=== PATIENT | female | born 1965 | race Caucasian/White ===

== ENCOUNTER 2019-06-17 06:23 | Day surgery (SDC) | payer OTHER ==
[~2019-06-17 06:23] MED LIST: Acetaminophen TAB* 325 MG PO ONE; Buffered Lidocaine 1% SYRIN* 1 ML/SYRINGE INTRADERM ONE; Famotidine IV* 10 MG/ML 2 ML (20 mg) IV ONE; Gabapentin CAP(*) 300 MG PO ONE; Lactated Ringers 1000 ML Bag* 1,000 ML IV SCH; Levalbuterol 0.63MG/3ML NEB* UNIT OF USE INH PRN
[2019-06-17] MEDS ORDERED: Gabapentin CAP(*) 300 MG ONE (06:42)
[2019-06-17] MEDS ORDERED: Acetaminophen TAB* 325 MG ONE (06:43)
[2019-06-17] MEDS ORDERED: Famotidine IV* 10 MG/ML 2 ML (20 mg) ONE (06:44)
[2019-06-17] MEDS ORDERED: ceFAZolin 2 GM in NS PREMIX(*) 2 GM/100 ML BAG IVPB ONE (06:44)
[2019-06-17] MEDS ORDERED: Lidocaine 1% INJ* 10 MG/ML 30 ML SDV ONE (07:18)
[2019-06-17] MEDS ORDERED: Bupivacaine 0.5%* 50 ML MDV VIAL ONE (07:19)
[2019-06-17] MEDS ORDERED: fentaNYL* 50 MCG/ML 2 ML VIAL (100 MCG VIAL) ONE (07:30)
[2019-06-17] MEDS ORDERED: Midazolam* 1 MG/ML 2 ML VIAL (2 MG) ONE (07:30)
[2019-06-17] MEDS ORDERED: Lidocaine 2% PF * 5 ML VIAL ONE (07:38)
[2019-06-17] MEDS ORDERED: Propofol* 10 MG/ML 20 ML BTL ONE (07:38)
[2019-06-17] MEDS ORDERED: Ketorolac INJ* 30 MG/ML 1 ML VIAL ONE (07:38)
[2019-06-17] MEDS ORDERED: diPHENhydraMINE IV* 50 MG/ML 1 ml VIAL (BENADRYL) ONE (07:46)
[2019-06-17] MEDS ORDERED: diPHENhydraMINE IV* 50 MG/ML 1 ml VIAL (BENADRYL) IV PRN (08:07)
[2019-06-17] MEDS ORDERED: DiMENhydriNATE IV* 50 MG/ML VIAL IV PUSH PRN (08:07)
[2019-06-17] MEDS ORDERED: Naloxone* 0.4 MG/ML 1 ML VIAL IV PRN (08:07)
[2019-06-17] MEDS ORDERED: Ondansetron INJ* 2 MG/ML VIAL IV PRN (08:07)
[2019-06-17] MEDS ORDERED: fentaNYL* 50 MCG/ML 2 ML VIAL (100 MCG VIAL) IV PRN (08:07)
[2019-06-17 10:11] VITALS: BP 103/77
--- NOTE | 2019-06-17 14:09 | OP ---
DATE OF OPERATION: 06/17/19 - [facility] DATE OF : 63 SURGEON: Mohinder Charles DPM SPLITTER OPERATOR: None. ANESTHESIA: MAC with local. PRE-OP DIAGNOSIS: Painful soft tissue mass, plantar right arch. POST-OP DIAGNOSIS: Painful soft tissue mass, plantar right arch. OPERATIVE PROCEDURE: Excision of painful soft tissue mass from right arch. PATHOLOGY: Excised soft tissue that is a suspected lipoma. INDICATIONS: The patient with a painful slow growing mass in the plantar aspect of right arch. MRI study findings with a well-circumscribed soft tissue mass. It appears most consistent with a lipoma. Given its size, its growth and symptoms, excisional biopsy is warranted. HEMOSTASIS: Pneumatic ankle tourniquet. ESTIMATED BLOOD LOSS: Less than 10 cc. DESCRIPTION OF PROCEDURE: The patient was brought to the operating room, placed on the operating room table in supine position. The anesthesia department administered IV sedation and peripheral nerve block was performed at the right foot with a 1:1 mixture of 1% lidocaine plain and 0.5% Marcaine plain. The right foot was prepped and draped in usual fashion. Right foot was exsanguinated with Esmarch bandage and ankle tourniquet was inflated to 200 mmHg over well-padded right ankle. Attention was directed to the plantar central aspect of the right arch where a visible and palpable soft tissue mass was noted. A curvilinear incision was made oriented more transversely and dissection was carried with curved Metzenbaum scissors. The mass was immediately identified and had yellowish appearance, similar if not the same as the surrounding fibroadipose tissue. However, this cyst had a definite demarcation that could be visually followed. Using sharp and blunt dissection, the soft tissue mass as well as a portion of surrounding normal-appearing tissue was excised and sent off the field as specimen. The area was visually inspected with no further evidence of any abnormal tissue or remaining portions of the cyst. The surgical site was flushed with copious amounts of normal sterile saline. Subcutaneous retention sutures were placed with 4-0 Vicryl and skin was closed with 3-0 and 4-0 nylon. The incision was dressed with Xeroform gauze and a well-padded sterile mildly compressive dressing was applied to the right foot with 4x4 gauze, Camilo and ABD pad and secured with Coban wrap. The pneumatic ankle tourniquet was deflated about the right ankle and prompt hyperemic response was noted to all 5 digits of the patient's right foot. Having appeared to have tolerated the procedure and the anesthesia well, the patient was transported via cart from the operating room to Recovery in satisfactory condition with capillary refill less than 3 seconds to all digits of the right foot. [id number]/CPS #: [id number] MTDD
== END 2019-06-17 09:34 | disposition home or self-care (01) ==
LOC: OREAST 06:23
PROVIDERS: ATTEND Podiatrist Foot Surgery
DX: D17.39 Benign lipomatous neoplasm of skin and subcutaneous tissue of other sites (principal); E11.9 Type 2 diabetes mellitus without complications; Z79.84 Long term (current) use of oral hypoglycemic drugs; G47.33 Obstructive sleep apnea (adult) (pediatric); I10 Essential (primary) hypertension; R01.1 Cardiac murmur, unspecified; M19.90 Unspecified osteoarthritis, unspecified site; E78.5 Hyperlipidemia, unspecified
CPT/HCPCS: 88304; A9270-GY; J0690; J1200; J1885; J2250; J2704; J3010; J3490

== ENCOUNTER 2019-07-23 13:22 | Emergency (ER) | payer OTHER ==
--- OUTSIDE RECORDS SUMMARY | 2019-07-23 13:27 | XMS REPORT | Summary of Care ---
:1965 Author Organization [facility] Address [address] [place] [address] Care Team Providers Name Role Phone Princess De Paz MD Primary Care Provider Reason for Visit Reason Comments Pre-Op Exam Lipoma surgery 06/17/2019. Encounter Details Date Type Department Care Team Description 06/09/2019 Office Visit Zuleyma Sahu Pre-op evaluation Practice [employer] (Primary Dx) [address] [place] [address] [place] [address] [phone] Allergies Active Allergy Reactions Severity Noted Date Comments Codeine Unknown Reaction 10/30/2007 Ct Dye Rash 02/22/2009 Sulfa Antibiotics Unknown Reaction 10/30/2007 Tape: Silk Or Adhesive Dermatologic Reaction 10/20/2008 documented as of this encounter (statuses as of 06/09/2019) Medications Medication Sig Dispensed Refills Start Date End Date Status ibuprofen (MOTRIN) 200 Take 200 mg by 0 Active MG Oral Tab mouth EVERY SIX HOURS NEEDED for Pain. nystatin-triamcinolone 1 g by Topical 60 g 3 07/22/2018 Active (MYCOLOG) 716696-1.1 route TWICE UNIT/GM-% Apply DAILY. externally CreamIndications: Type 2 diabetes mellitus without complication, without long-term current use of insulin (HCC) atorvastatin (LIPITOR) Take 1 Tab by 90 Tab 3 11/12/2018 Active 40 MG Oral Tab mouth DAILY. duloxetine (CYMBALTA) 60 TAKE 1 CAPSULE 90 Cap 1 01/11/2019 Active MG Oral CAPSULE ENTERIC BY MOUTH EVERY COATED DAY PARTICLESIndications: Fibromyalgia BISOPROLOL-HYDROCLOROTHI Take 1 Tab by 90 Tab 3 03/08/2019 Active AZIDE 10-6.25 MG Oral mouth DAILY. TabIndications: Essential hypertension Dulaglutide (TRULICITY) Inject 1.5 mg 3 mL 3 04/16/2019 Active 1.5 MG/0.5ML beneath the skin Subcutaneous Solution EVERY 7 DAYS. Pen-injector metFORMIN (GLUCOPHAGE Take 1 Tab by 90 Tab 3 05/18/2019 Active XR) 500 MG Oral TABLET mouth DAILY. SR 24 HRIndications: Type 2 diabetes mellitus without complication, without long-term current use of insulin (HCC) gabapentin (NEURONTIN) Take 1 Cap by 30 Cap 2 05/18/2019 Active 300 MG Oral mouth EVERY CapIndications: BEDTIME. Peripheral polyneuropathy Hospital, Clinic, or Other Ordered Dose Route Frequency Start Date End Date Status Facility Administered Medication Dulaglutide 0.75 MG/0.5ML 1 Dose SC NOW 03/17/2019 Active SOPNIndications: Type 2 diabetes mellitus without complication, without long-term current use of insulin (HCC) documented as of this encounter (statuses as of 06/09/2019) Active Problems Problem Noted Date Type 2 diabetes mellitus without complication, without long-term current 06/13 use of insulin BMI 36.0-36.9,adult 05/22/2012 Overview: This patient's BMI has been calculated and is above average, and BMI management plan is completed. General patient education discussion including: obesity-related excess mortality, weight loss link to reduction of risk factors for cardiac and other diseases MATT (obstructive sleep apnea) 12/29/2008 Overview: Not using mask- frequent pneumonia whiile on mask- stopped Studies done in [place] C[place] (carpal tunnel syndrome) 10/21/2008 Overview: Srugery on left -Dr Alvarez; Raynauds phenomenon 10/21/2008 Overview: Vasular -like complaint of the right arm- extensive sands without true diagnosis Irritable bowel syndrome 10/30/2007 Fibromyalgia 10/30/2007 Lung nodule Overview: f/u recommended in 04/13 for stability documented as of this encounter (statuses as of 06/09/2019) Resolved Problems Problem Noted Date Resolved Date Sprain of wrist, unspecified site 12/29/2008 03/11/2013 Tachycardia 03/11/2013 documented as of this encounter (statuses as of 06/09/2019) Immunizations Name Administration Dates Next Due H1N1 Injectable Adult 10/17/2009 Influenza (IM) Preservative Free 07/22/2018, 07/27/2014, 10/22/2013, 07/05/2009 Influenza Vaccine Whole 07/21/2008, 08/11/2007 PNEUMOCOCCAL POLYSACCHARIDE VACCINE 07/21/2008, 07/31/2001 TDAP Vaccine 06/27/2008 dT Vaccine 04/24/1994 documented as of this encounter Social History Tobacco Use Types Packs/Day Years Used Date Never Smoker Smokeless Tobacco: Never Used Alcohol Use Drinks/Week oz/Week Comments No 0 Standard drinks or equivalent 0.0 Sex Assigned at Date Recorded Not on file Job Start Date Occupation Industry Not on file Not on file Not on file Travel History Travel Start Travel End No recent travel history available. documented as of this encounter Last Filed Vital Signs Vital Sign Reading Time Taken Comments Blood Pressure 143/73 06/09/2019 9:24 AM EDT Pulse - - Temperature - - Respiratory Rate - - Oxygen Saturation - - Inhaled Oxygen Concentration - - Weight 93.2 kg (205 lb 6.4 oz) 06/09/2019 9:24 AM EDT Height 162.6 cm (5' 4") 06/09/2019 9:24 AM EDT Body Mass Index 35.26 06/09/2019 9:24 AM EDT documented in this encounter Patient Instructions Patient InstructionsZuleyma Rose FNP - 06/09/2019 9:20 AM EDTFollow up as needed documented in this encounter Progress Notes Zuleyma Rose FNP - 06/09/2019 9:20 AM EDT PATIENT: Maryana Jefferson : 1965 DATE OF SERVICE: 06/09/2019 Subjective SUBJECTIVE: Maryana Jefferson is a 53-y.o. female who presents to the office today for a preoperative consultation at the request of Dr Evans, who will perform an excision of soft tissue mass right foot arch with IV sedation on 06/17/19. Patient complains of : Pain right foot. Patient denies cardiac symptoms: chest pain, syncope. Past history of pulmonary embolism/deep vein thrombosis: no. There is a history of bleeding complications: required transfusion when had hysterectomy Past history of anesthetic problem: no. Exercise capacity: Can you walk 2 blocks on level ground, or carry 2 bags of groceries up 2 flights of stairs? Yes Current active problems are: Patient Active Problem List Diagnosis Date Noted Type 2 diabetes mellitus without complication, without long-term current use of insulin ([facility])06/13/2016 BMI 36.0-36.9,adult 05/22/2012 This patient's BMI has been calculated and is above average, and BMI management plan is completed. General patient education discussion including: obesity-related excess mortality, weight loss linkto reduction of risk factors for cardiac and other diseases MATT (obstructive sleep apnea) 12/29/2008 Not using mask- frequent pneumonia whiile on mask- stopped Studies done in [place] C[facility] (carpal tunnel syndrome) 10/21/2008 Srugery on left -Dr Alvarez; Raynauds phenomenon 10/21/2008 Vasular -like complaint of the right arm- extensive sands without true diagnosis Lung nodule f/u recommended in 04/13 for stability Irritable bowel syndrome 10/30/2007 Fibromyalgia 10/30/2007 Past Medical History: Diagnosis Date Fatty liver Fibromyalgia 10/30/2007 Infection with microorganisms resistant to penicillins Irritable bowel syndrome 10/30/2007 Lung nodule f/u recommended in 04/13 for stability MRSA carrier MATT (obstructive sleep apnea) Pilonidal cyst with abscess Postmenopausal Tachycardia Family History Adopted: Yes Family history unknown: Yes Current Outpatient Medications Medication Sig atorvastatin (LIPITOR) 40 MG Oral Tab Take 1 Tab by mouth DAILY. BISOPROLOL-HYDROCLOROTHIAZIDE 10-6.25 MG Oral Tab Take 1 Tab by mouth DAILY. Dulaglutide (TRULICITY) 1.5 MG/0.5ML Subcutaneous Solution Pen-injector Inject 1.5 mg beneaththe skin EVERY 7 DAYS. duloxetine (CYMBALTA) 60 MG Oral CAPSULE ENTERIC COATED PARTICLES TAKE 1 CAPSULE BY MOUTH EVERY DAY gabapentin (NEURONTIN) 300 MG Oral Cap Take 1 Cap by mouth EVERY BEDTIME. ibuprofen (MOTRIN) 200 MG Oral Tab Take 200 mg by mouth EVERY SIX HOURS NEEDED for Pain. metFORMIN (GLUCOPHAGE XR) 500 MG Oral TABLET SR 24 HR Take 1 Tab by mouth DAILY. nystatin-triamcinolone (MYCOLOG) 224433-5.1 UNIT/GM-% Apply externally Cream 1 g by Topical route TWICE DAILY. Current Facility-Administered Medications Medication Dulaglutide 0.75 MG/0.5ML SOPN Allergies Allergen Reactions Codeine Unknown Reaction Contrast Dye [Ct Dye] Rash Sulfa Antibiotics Unknown Reaction Tape: Silk Or Adhesive Dermatologic Reaction Social History Socioeconomic History Marital status: Spouse name: Not on file Number of children: Not on file Years of education: Not on file Highest education level: Not on file Occupational History Not on file Social Needs Financial resource strain: Not on file Food insecurity: Worry: Not on file Inability: Not on file Transportation needs: Medical: Not on file Non-medical: Not on file Tobacco Use Smoking status: Never Smoker Smokeless tobacco: Never Used Substance and Sexual Activity Alcohol use: No Alcohol/week: 0.0 standard drinks Drug use: No Sexual activity: Yes Partners: Male Lifestyle Physical activity: Days per week: Not on file Minutes per session: Not on file Stress: Not on file Relationships Social connections: Talks on phone: Not on file Gets together: Not on file Attends latter-day service: Not on file Active member of club or organization: Not on file Attends meetings of clubs or organizations: Not on file Relationship status: Not on file Intimate partner violence: Fear of current or ex partner: Not on file Emotionally abused: Not on file Physically abused: Not on file Forced sexual activity: Not on file Other Topics Concern Back Care Not Asked Bike Helmet Not Asked Blood Transfusions Not Asked Caffeine Concern Not Asked Exercise No Hobby Hazards Not Asked International Travel Not Asked Service Not Asked Occupational Exposure Not Asked Seat Belt Not Asked Self-Exams Not Asked Sleep Concern No Special Diet No Stress Concern Yes Comment: work-related Weight Concern No Social History Narrative Runs a daycare. Lives with . REVIEW OF SYSTEMS: All remaining review of systems was negative except for: Musculoskeletal: positive for myalgias. Objective OBJECTIVE: BP 143/73 | Ht 5' 4" (1.626 m) | Wt 205 lb 6.4 oz (93.2 kg) | BMI 35.26 kg/m GENERAL: alert, cooperative, no distress. SKIN: no rash or abnormalities. EYES: conjunctivae/corneas clear. Pupils equal, round, reactive to light. Equal ocular movements intact. MOUTH: moist mucous membranes, no lesions. LYMPH NODES: cervical, supraclavicular, and axillary nodes normal.. LUNGS: clear to auscultation bilaterally. HEART: regular rate and rhythm. EKG NSR ABDOMEN: soft, non-tender. No masses, no organomegaly. FLANK TENDERNESS: absent. EXTREMITIES: no calf tenderness, 2 cm mass plantar aspect right foot, no erythema. Tenderness rightlateral epicondyl NEUROLOGIC: alert, oriented x3. Gait normal. Reflexes and motor strength normal and symmetric. Cranial nerves 2-12 and sensation grossly intact.. PSYCHIATRIC: Pleasant and appropriate. ASSESSMENT: No contraindications to planned surgery 1. Pre-op evaluation Clinical predictors: Plan PLAN: MEDICALLY CLEARED General preoperative instructions for patient. Proceed with surgery as planned. No food or liquids the morning of surgery. Call surgeon if develop respiratory illness, fever, or other illness. Letter sent to requesting surgeon listed above. Author: HUMBERTO Chin 06/09/2019 09:56 documented in this encounter Plan of Treatment Date Type Specialty Care Team Description 08/30/2019 Lab Internal Medicine 09/07/2019 Office Visit Internal Medicine Princess De Paz MD [address] [place] [address] [phone] Name Type Priority Associated Diagnoses Order Schedule AMBULATORY 12 LEAD EKG EKG Routine Pre-op evaluation Ordered: 06/09/2019 (GLOBAL) Health Maintenance Due Date Last Done Comments Diabetic Eye Exam 1965 FOOT EXAM 1982 ZOSTER IMMUNIZATION SERIES 2014 (1 of 2) INFLUENZA VACCINE (#1) 2019 07/22/2018, 07/27/2014, 10/22/2013, Additional history exists HEMOGLOBIN A1C 06/10/2019 03/10/2019, 07/22/2018, 04/28/2018, Additional history exists DEPRESSION SCREENING 07/22/2019 07/22/2018 LIPID DISORDER SCREENING 03/10/2020 03/10/2019, 11/12/2018, 07/22/2018, Additional history exists URINE MICROALBUMIN 05/03/2020 05/03/2019, 04/28/2018 COLONOSCOPY SCREENING 04/06/2029 04/06/2019 PNEUMOCOCCAL 0-64 YRS Completed 07/21/2008, 07/31/2001 HPV IMMUNIZATION SERIES Aged Out No longer eligible based on patient's age to complete this topic MENINGOCOCCAL VACCINE IMM Aged Out No longer eligible based on patient's age to complete this topic documented as of this encounter Goals Goal Patient Goal Associated Recent Patient-Stated? Author Type Problems Progress Lifestyle < 7.0 Diabetes Type 2 diabetes 7.4 No [place]repet, mellitus without (03/10/2019 MD Princess complication, 9:47 AM EDT) without long-term current use of insulin Note: Diabetes Care Plan According to current 2014 ADA guidelines the patient A1C goal is less than 7. The patient's last A1C was Lab Results Component Value Date GLYCOHEMOGLOBIN A1C 7.3 (H) 06/01/2016 The patient is:above goal . As your provider, it is important that I advise you regarding: your current medications and help you with any challenges you may face taking your medications as directed (ex. instructions, cost, side effects, and interactions). Important lifestyle changes:exercise, diet, glucose monitoring and medication compliance your clinical goals and how you can achieve success:weight reduction, exercise plan, diet management and glucose monitoring medication management: adjusted medications as appropriate patient education/self-management tools provided: Yes To successfully manage my Diabetes I will: have lab work every six months if my previous A1c was 7 or less. If my results were greater than 7, I will have lab work every three months. My goal is to control my diabetes by keeping A1c below 7.0 take medications every day as prescribed by my healthcare provider and if unable to take them I will discuss with my provider. exercise/walk 45 minutes 4 day(s) per week. If I experience chest pain, chest tightness, or shortness of breath, I will seek medical attention immediately. check feet daily. If sores or irritation are noticed, will seek medical attention. follow a low carbohydrate and low fat diet. My goal is an LDL (bad cholesterol) number less than 100 when I have my routine lab work. check blood sugar as instructed and will call my healthcare provider if the results are consistently below 70 or above 300. I will monitor for symptoms of low blood sugar (feeling faint, dizzy, lig htheaded, jittery, sweaty, or hungry), if symptoms are noticed, I will eat or drink something (glucose tabs, orange juice, candy) to help raise sugar. record my blood sugar results (including dextrose sticks). [facility] is safe and secure way for you to do this in your medical record online. try to obtain an ideal body weight. My recent weight was Weight: 223 lb ( 101.2 kg). My weight loss goal for my next office visit is 10 lbs . to prevent kidney problems common to people with diabetes I will complete a yearly Microalbumin to check for protein in urine. I will talk with my healthcare provider about medications to prevent diabetic renal disease. to prevent diabetic retinopathy I will see an eye doctor yearly. A yearly dilated eye exam helps prevent blindness. if currently smoking, will discuss how to quit smoking with my healthcare provider and work towards quitting. Glycohemoglobin A1c < 7.0 Diabetes 7.4 (03/10/2019 9:47 AM No Princess De Paz MD EDT) Note: This is an individualized treatment (diabetes control, HgbA1C) goal for Maryana Jefferson: Displayed above is your progress towards your HgbA1C goal. Your goal is shown above (on the left); your most recent HgbA1C is shown on the right. Note that lower numbers are better. Weight loss vs. 18 mo Lifestyle 7.6 (06/09/2019 9:24 AM EDT) No Princess De Paz MD max (lbs) >= 10 Note: This is an individualized lifestyle goal for Maryana Jefferson: Your body mass index (BMI) is more than 30. You should lose weight. A reasonable starting goal is to lose 10 pounds. Displayed above is how many pounds you have lost thus far towards your 10 pound weight loss goal. Keep immunizations current Lifestyle No Princess De Paz MD Note: This is an individualized lifestyle goal for Maryana Jefferson: Please be sure to keep up-to-date on recommended immunizations. For example, this would include a yearly influenza vaccine. Immunization status can be seen by looking at the Health Maintenance sections of your [facility], Plan of Care, and any After Visit Summaries. Take all prescribed medications as directed Self-management Princess Tello MD Note: This is an individualized self-management goal for Maryana Jefferson: Please take all prescribed medications as directed. 1. Do not skip doses. If you cannot afford your medications, talk with your doctor. 2. Use a pill reminder system such as a pill box if needed. Your pharmacist can help you with this. 3. Contact your Pharmacy 5 days before your medication runs out. If you cannot take your medications for any reasons, talk with your doctor. 4. Please bring all of your medication bottles and inhalers (or a list of all your medications/inhalers) with you to every visit. Potential barriers to meeting all of your care plan goals will continue to be addressed on an ongoing basis. documented as of this encounter Results Not on filedocumented in this encounter Visit Diagnoses Diagnosis Pre-op evaluation - Primary Preoperative examination, unspecified documented in this encounter Insurance Payer Benefit Plan / Subscriber ID Effective Dates Phone Address Type Group [employer] [facility] xxxxxxxxxxx 2017-Present [employer] documented as of this encounter
--- OUTSIDE RECORDS SUMMARY | 2019-07-23 13:27 | XMS REPORT | Summary of Care ---
:1965 Author Organization [facility] Address [address] [place] [address] Care Team Providers Name Role Phone Princess De Paz Primary Care Provider Reason for Visit Reason Comments Follow Up follow up discussion regarding glucose; BS readings 140- 160; been having some cold s/s Flu Vaccine paresh flu vaccine. Encounter Details Date Type Department Care Team Description 07/13/2019 Office Visit [place] [facility] Princess De Paz MD Type 2 diabetes mellitus without complication, without long-term current use of insulin ([facility]) (Primary Dx); Medicine [facility] MATT (obstructive sleep apnea); [address] [place] [address] Essential hypertension; [place] [address] BMI 36.0-36.9,adult; [phone] Lipid disorder Allergies Active Allergy Reactions Severity Noted Date Comments Codeine Unknown Reaction 10/30/2007 Ct Dye Rash 02/22/2009 Sulfa Antibiotics Unknown Reaction 10/30/2007 Tape: Silk Or Adhesive Dermatologic Reaction 10/20/2008 documented as of this encounter (statuses as of 07/13/2019) Medications Medication Sig Dispensed Refills Start Date End Date Status ibuprofen (MOTRIN) 200 Take 200 mg by 0 Active MG Oral Tab mouth EVERY SIX HOURS NEEDED for Pain. nystatin-triamcinolone 1 g by Topical 60 g 3 07/22/2018 Active (MYCOLOG) 266370-6.1 route TWICE UNIT/GM-% Apply DAILY. externally CreamIndications: [...] complication, without long-term current use of insulin ([facility]) gabapentin (NEURONTIN) Take 1 Cap by 90 Cap 3 06/28/2019 Active 300 MG Oral mouth EVERY CapIndications: BEDTIME. Peripheral polyneuropathy Semaglutide, 1 MG/DOSE, Inject 1 Appl 1.5 mL 3 07/13/2019 Active (OZEMPIC, 1 MG/DOSE,) 2 beneath the skin MG/1.5ML Subcutaneous EVERY 7 DAYS. Solution Pen-injectorIndications: Type 2 diabetes mellitus without complication, without long-term current use of insulin ([facility]) Hospital, Clinic, or Other Ordered Dose Route Frequency Start Date End Date Status Facility Administered Medication Dulaglutide 0.75 MG/0.5ML 1 Dose SC NOW 03/17/2019 Active SOPNIndications: Type 2 diabetes mellitus without complication, without long-term current use of insulin ([facility]) documented as of this encounter (statuses as of 07/13/2019) Active Problems Problem Noted Date Type 2 [...] whiile on mask- stopped Studies done in [place] [facility] (carpal tunnel syndrome) 10/21/2008 Overview: Srugery on left -Dr Alvarez; Raynauds phenomenon 10/21/2008 Overview: Vasular -like complaint of the right arm- extensive sands without true diagnosis Irritable bowel syndrome 10/30/2007 Fibromyalgia 10/30/2007 Lung nodule Overview: f/u recommended in 04/13 for stability documented as of this encounter (statuses as of 07/13/2019) Resolved Problems Problem Noted Date Resolved Date Sprain of wrist, unspecified site 12/29/2008 03/11/2013 Tachycardia 03/11/2013 documented as of this encounter (statuses as of 07/13/2019) Immunizations Name Administration Dates Next Due H1N1 [...] Sign Reading Time Taken Comments Blood Pressure 108/62 07/13/2019 2:40 PM EDT Pulse 92 07/13/2019 2:40 PM EDT Temperature - - Respiratory Rate - - Oxygen Saturation 97% 07/13/2019 2:40 PM EDT Inhaled Oxygen Concentration - - Weight 93 kg (205 lb) 07/13/2019 2:40 PM EDT Height 162.6 cm (5' 4") 07/13/2019 2:40 PM EDT Body Mass Index 35.19 07/13/2019 2:40 PM EDT documented in this encounter Patient Instructions Patient InstructionsCrePrincess guerrero MD - 07/13/2019 2:00 PM EDTozempic or trulicity documented in this encounter Progress Notes Princess De Paz MD - 07/13/2019 2:00 PM EDT NAME:Maryana Jefferson 1965: 1965 ENC Date: 07/13/2019 CC: Chief Complaint Patient presents with Follow Up follow up discussion regarding glucose; BS readings 140- 160; been having some cold s/s Flu Vaccine paresh flu vaccine. Maryana Jefferson is a 53-y.o. female . Diabetes - Started trulcity last visit - intolerant to full dose metformin Numbness under the toes on the right more than left foot - multiple problems from last visit : 2. . Hematuria - sent to urology - has urolithiasis - working with Dr Reyes on this -did work up - Still has hematuria Waiting to hear back from Amy - 3. . Follow up heartburn/ diarrhea - - Better off metformin - 4. Sleep study- reviewed- Mild obsructive sleep apnea - and referral to [facility]- discussed also consideration of mandibular- intends to talk with dentist - has not gottne around to this yet- Encouraged- Current Outpatient Medications Medication Sig atorvastatin (LIPITOR) [...] 1 Tab by mouth DAILY. nystatin-triamcinolone (MYCOLOG) 016246-9.1 UNIT/GM-% Apply externally Cream 1 g by Topical route TWICE DAILY. Semaglutide, 1 MG/DOSE, (OZEMPIC, 1 MG/DOSE,) 2 MG/1.5ML Subcutaneous Solution Pen-injector Inject 1 Appl beneath the skin EVERY 7 DAYS. Current Facility-Administered Medications Medication Dulaglutide 0.75 MG/0.5ML SOPN Patient Active Problem List Diagnosis Date Noted Type 2 diabetes mellitus without complication, without long-term current use of insulin ([facility])06/13/2016 BMI 36.0-36.9,adult 05/22/2012 This patient's BMI has been calculated and is above average, and BMI management plan is completed. General patient education discussion including: obesity-related excess mortality, weight loss linkto reduction of risk factors for cardiac and other diseases MATT (obstructive sleep apnea) 12/29/2008 Not using mask- frequent pneumonia whiile on mask- stopped Studies done in [place] [facility] (carpal tunnel syndrome) 10/21/2008 Srugery on left -Dr Alvarez; Raynauds phenomenon 10/21/2008 Vasular -like complaint of the right arm- extensive sands without true diagnosis Lung nodule f/u recommended in 04/13 for stability Irritable bowel syndrome 10/30/2007 Fibromyalgia 10/30/2007 Family History Adopted: Yes Family history unknown: Yes No cardiopulmonary symptoms No upper or lower GI complaints No urinary tract symptoms. No bruising/ bleeding. No neurological complaints . No insomnia.+ . Social History Tobacco Use Smoking status: Never Smoker Smokeless tobacco: Never Used Substance Use Topics Alcohol use: No Alcohol/week: 0.0 standard drinks Drug use: No OBJECTIVE: BP 108/62 (BP Location: Left arm, Patient Position: Sitting) | Pulse 92 | Ht 5 ' 4" (1.626 m) | Wt205 lb (93 kg) | SpO2 97% | BMI 35.19 kg/m . Heent neg Neck no JVD, thyromegaly or bruit Lungs Clear CV rrr Abd soft, nontender, no organomegaly Ext no edema; no lesions; pulses intact Neuro: intellect intact ; motor including gait unremarkable A/P ICD-9-CM ICD-10-CM 1. Type 2 diabetes mellitus without complication, without long-term current use of insulin ([facility]) 250.00 E11.9 Semaglutide, 1 MG/DOSE, (OZEMPIC, 1 MG/DOSE,) 2 MG /1.5ML Subcutaneous Solution Pen-injector 2. MATT (obstructive sleep apnea) 327.23 G47.33 3. Essential hypertension 401.9 I10 4. BMI 36.0-36.9,adult V85.36 Z68.36 5. Lipid disorder 272.9 E78.9 Patient Instructions ozempic or trulicity AUTHOR: Princess De Paz MD 15:17 07/13/2019 documented in this encounter Plan of Treatment Date Type Specialty Care Team Description 08/30/2019 Lab Internal Medicine 09/07/2019 Office Visit Internal Medicine Princess De Paz MD [address] [place] [address] [phone] Health Maintenance Due Date Last Done Comments [...] Associated Recent Patient-Stated? Author Type Problems Progress Blood Pressure Blood Pressure 108/62 No Zandra, < 140/90 (07/13/2019 MD Princess 2:40 PM EDT) Note: This is an individualized treatment (blood pressure) goal for Maryanadeepali Salazarg: Displayed above (on the left) is your goal for blood pressure control. Your most recent blood pressure is also shown above, on the right. You should try to achieve blood pressures that are lower than your goal listed above (on the left). Lifestyle < 7.0 Diabetes Type 2 diabetes 7.4 (03/10/2019 No Princess De Paz, mellitus without 9:47 AM EDT) MD complication, without long-term current use of insulin Note: [...] my blood sugar results (including dextrose sticks). [place] is safe and secure way for you [...] < 7.0 Diabetes 7.4 (03/10/2019 9:47 AM Princess Tello MD EDT) Note: This is an individualized treatment (diabetes control, HgbA1C) goal for Maryana Jefferson: Displayed above is your progress towards your HgbA1C goal. Your goal is shown above (on the left); your most recent HgbA1C is shown on the right. Note that lower numbers are better. Weight loss vs. 18 mo max Lifestyle 8 (07/13/2019 2:40 PM EDT) No Princess De Paz MD (lbs) >= 10 Note: This is an [...] filedocumented in this encounter Visit Diagnoses Diagnosis Type 2 diabetes mellitus without complication, without long-term current use of insulin ([facility]) - Primary MATT (obstructive sleep apnea) Obstructive sleep apnea (adult) (pediatric) Essential hypertension Unspecified essential hypertension BMI 36.0-36.9,adult Body Mass Index 36.0-36.9, adult Lipid disorder Unspecified disorder of lipoid metabolism documented in this encounter Insurance Payer Benefit Plan / Subscriber ID Effective Dates Phone Address Type Group [employer] [facility] xxxxxxxxxxx 2007-Present [employer] documented as of this encounter
[2019-07-23 13:58] VITALS: BP 110/73
[2019-07-23] MEDS ORDERED: Ketorolac INJ* 30 MG/ML 1 ML VIAL IM ONE (14:58)
--- NOTE | 2019-07-23 14:59 | UC ---
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 No fever /chills. No dysuria / freq / urg. + hematuria - urine pink color. Flank or back pain. No rash. No current sob / cp / palpitations. No new GI issues, but does have hx "IBS". Reports that she has been seen within the past year by urology, told she had a stone. 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 Recent R foot surgery in Jun, no new issues, wearing post op shoe, reports doing ok. No n/v. Took approx 400mg ibuprofen approx 9am this am. BS at home > 200mg / dl. Last po approx 12:30 muffin. - History of Current Complaint Chief Complaint: UCGU Stated Complaint: ABD PAIN, PERSONAL Hx Obtained From: Patient Pain Intensity: 8 Allergies/Adverse Reactions: Allergies Allergy/AdvReac Type Severity Reaction Status Date / Time erythromycin base Allergy Nausea And Verified 07/23/19 13:59 Vomiting hydrocodone Allergy Nausea Verified 07/23/19 13:59 latex Allergy See Comment Verified 07/23/19 13:59 Sulfa (Sulfonamide Allergy Rash Verified 07/23/19 13:59 Antibiotics) CONTRAST Allergy Severe Rash Uncoded 07/23/19 13:59 PMH/Surg Hx/FS Hx/Imm Hx Previously Healthy: Yes - see hpi. Endocrine History: Diabetes - Surgical History Surgical History: Yes Surgery Procedure, Year, and Place: HYSTERECTOMY, TONSILLECTOMY, KNEE RIGHT - Family History Known Family History: Positive: Unknown - adopted - Social History Alcohol Use: Occasionally Substance Use Type: None Smoking Status (MU): Never Smoked Tobacco Review of Systems All Other Systems Reviewed And Are Negative: Yes Constitutional: Positive: Other - see hpi Skin: Positive: Negative Eyes: Positive: Negative ENT: Positive: Negative Respiratory: Positive: Other - see hpi Cardiovascular: Positive: Other - see hpi Gastrointestinal: Positive: Other - see hpi Genitourinary: Positive: Other - see hpi Motor: Positive: Other - see hpi Neurovascular: Positive: Negative Musculoskeletal: Positive: Other: - see hpi Neurological: Positive: Negative Psychological: Positive: Negative Is Patient Immunocompromised?: No Physical Exam Triage Information Reviewed: Yes Appearance: Well-Nourished, Pain Distress - lying down (able to sit up) but appears uncomfortable Vital Signs: Initial Vital Signs Temp 98.6 F 07/23/19 13:50 Pulse 85 07/23/19 13:50 Resp 18 07/23/19 13:50 BP 110/73 07/23/19 13:50 Pulse Ox 99 07/23/19 13:50 Vital Signs Reviewed: Yes Eye Exam: Normal ENT Exam: Normal Neck exam: Normal Neck: Positive: Supple Respiratory Exam: Normal Respiratory: Positive: Chest non-tender, Lungs clear, Normal breath sounds, No respiratory distress, No accessory muscle use Cardiovascular Exam: Normal Cardiovascular: Positive: RRR, No Murmur, Pulses Normal, Brisk Capillary Refill Abdominal Exam: Other - + significantly tender LLQ. + local guarding, no rebound. no cvat / flank tenderness. Able to self ambulate but slowly and uncomfortable appearance. + bs. Bowel Sounds: Positive: Present Musculoskeletal Exam: Normal Musculoskeletal: Positive: Strength Intact Neurological Exam: Normal - grossly nonfocal Psychological Exam: Normal - conversing easily and appropriately. nad. Skin Exam: Normal - no visible or reported rash Abd Pain Female Course/Dx - Course Course Of Treatment: Reviewed urine dip. + 2+ blood, tr L est o/w ok. Neg glucose. neg ketones. Reviewed blood glucose 99 mg / dl FS Reviewed pert imaging studies / reports / ancillaries dating to 2007 in [place]. + abd pain LLQ, hx abd issues (IBS vs other (see CT 2007)?), in the setting of DM, hx nephrolithiasis, hx "total hysterectomy". Will send to ED, Ms. Jefferson expresses understanding and agreement. Adamantly declines EMS, friend will drive. Questions as posed answered to the best of my ability. - Differential Dx/Diagnosis Provider Diagnosis: Acute abdominal pain Discharge ED - Sign-Out/Discharge Documenting (check all that apply): Patient Departure All imaging exams completed and their final reports reviewed: No Studies - Discharge Plan Condition: Stable Disposition: HOME Patient Education Materials: Acute Abdominal Pain (ED) Referrals: Princess De Paz MD [Primary Care Provider] - Additional Instructions: Please go directly to the Emergency Department. Stop and call 911 for any problems en route. - Billing Disposition and Condition Condition: STABLE Disposition: Home
== END 2019-07-23 15:35 | disposition home or self-care (01) ==
LOC: UCEAST 13:22
DX: R10.9 Unspecified abdominal pain (principal); E11.9 Type 2 diabetes mellitus without complications; Z88.1 Allergy status to other antibiotic agents; Z88.5 Allergy status to narcotic agent; Z91.040 Latex allergy status; Z88.2 Allergy status to sulfonamides; Z91.041 Radiographic dye allergy status
CPT/HCPCS: 81003; 87086; 96372; 99212; G0463; J1885

== ENCOUNTER 2019-07-23 16:08 | Emergency (ER) | payer OTHER ==
[2019-07-23 18:15] VITALS: BP 125/97
== END 2019-07-23 18:37 | disposition left against medical advice (07) ==
LOC: ED 16:08
DX: N93.9 Abnormal uterine and vaginal bleeding, unspecified (principal); Z53.21 Procedure and treatment not carried out due to patient leaving prior to being seen by health care provider
CPT/HCPCS: 99282

== ENCOUNTER 2019-07-24 06:15 | Observation (INO) | payer OTHER ==
--- NOTE | 2019-07-24 06:35 | ED ---
GI/ HPI - HPI Summary HPI Summary: Pt. is a 53 y.o female who presents to the ER for hematuria and dysuria that started yesterday. Pt. states she has a remote hx of kidney stones. Past hx of HLD, HTN, DM. Pt. also notes intermittent chest pain. Sxs are moderate in severity. No current modifying factors. - History of Current Complaint Chief Complaint: EDUrogenitalProblems Time Seen by Provider: 07/24/19 06:33 Stated Complaint: BLOOD IN URINE PER PT Hx Obtained From: Patient Pain Intensity: 5 - Additional Pertinent History Primary Care Physician: SHANIKA - Allergy/Home Medications Allergies/Adverse Reactions: Allergies Allergy/AdvReac Type Severity Reaction Status Date / Time erythromycin base Allergy Nausea And Verified 07/23/19 16:14 Vomiting hydrocodone Allergy Nausea Verified 07/23/19 16:14 latex Allergy See Comment Verified 07/23/19 16:14 Sulfa (Sulfonamide Allergy Rash Verified 07/23/19 16:14 Antibiotics) CONTRAST Allergy Severe Rash Uncoded 07/23/19 16:14 Home Medications: Home Medications Empagliflozin [Jardiance] 10 mg PO DAILY 07/24/19 [History Confirmed 07/24/19] PMH/Surg Hx/FS Hx/Imm Hx Previously Healthy: Yes Endocrine/Hematology History: Reports: Hx Diabetes - type 2 FS qam Cardiovascular History: Reports: Hx Angina, Hx Hypertension Denies: Hx Coronary Artery Disease, Hx Hypercholesterolemia, Hx Myocardial Infarction, Hx Pacemaker/ICD, Hx Valvular Heart Disease Respiratory History: Reports: Hx Asthma - bronchial asthma, Hx Sleep Apnea GI History: Reports: Hx Irritable Bowel, Hx Ulcer - suspected, Other GI Disorders - spastic bowel History: Reports: Hx Kidney Stones Denies: Hx Renal Disease Musculoskeletal History: Reports: Hx Arthritis - knees /hips, Hx Back Problems, Hx Bursitis - hx of, Hx Fibromyalgia, Hx Tendonitis - right elbow Sensory History: Reports: Hx Cataracts - very small starting, Hx Contacts or Glasses - glasses Denies: Hx Hearing Aid Opthamlomology History: Reports: Hx Cataracts - very small starting, Hx Contacts or Glasses - glasses Neurological History: Reports: Hx Nerve Disease - DM neuropathy, fibromyalgia Psychiatric History: Denies: Hx Panic Disorder - Cancer History Hx Chemotherapy: No - Surgical History Surgery Procedure, Year, and Place: HYSTERECTOMY, TONSILLECTOMY, KNEE RIGHT Hx Anesthesia Reactions: No - Immunization History Date of Tetanus Vaccine: remote Date of Influenza Vaccine: 2013 Infectious Disease History: Yes Infectious Disease History: Reports: Hx of Known/Suspected MRSA - Nasal swab negative on admission Denies: History Other Infectious Disease, Traveled Outside the [place] in Last 30 Days - Family History Known Family History: Positive: Unknown - adopted - Social History Occupation: Works From/At Home Lives: With Family Alcohol Use: Occasionally Hx Substance Use: No Substance Use Type: Reports: None Hx Tobacco Use: No Smoking Status (MU): Never Smoked Tobacco Review of Systems Positive: Chills Eyes: Negative ENT: Negative Positive: Chest Pain Respiratory: Negative Negative: Shortness Of Breath, Cough Positive: Abdominal Pain, Nausea. Negative: Vomiting, Diarrhea Positive: dysuria, flank pain, hematuria Skin: Negative Neurological: Negative All Other Systems Reviewed And Are Negative: Yes Physical Exam Triage Information Reviewed: Yes Vital Signs On Initial Exam: Initial Vitals Temp Pulse Resp BP Pulse Ox 97.4 F 86 18 117/81 98 07/24/19 06:16 07/24/19 06:16 07/24/19 06:16 07/24/19 06:16 07/24/19 06:16 Vital Signs Reviewed: Yes Appearance: Positive: Well-Appearing - Pt. lying in bed in NAD. Anxious. Skin: Positive: Warm, Dry Head/Face: Positive: Normal Head/Face Inspection Eyes: Positive: Normal, EOMI Neck: Positive: Supple Respiratory/Lung Sounds: Positive: Clear to Auscultation, Breath Sounds Present Cardiovascular: Positive: Normal, RRR Abdomen Description: Positive: Other: - Obese. Abd. is soft with mild diffuse tenderness on palpation. Bilateral CVA tenderness R>L. Musculoskeletal: Positive: Normal, Strength/ROM Intact Neurological: Positive: Normal, CN Intact II-III Psychiatric: Positive: Affect/Mood Appropriate Diagnostics - Vital Signs Vital Signs Temp Pulse Resp BP Pulse Ox 07/24/19 06:16 97.4 F 86 18 117/81 98 - Laboratory Result Diagrams: 07/24/19 07:43 07/24/19 07:43 Lab Statement: Any lab studies that have been ordered have been reviewed, and results considered in the medical decision making process. GIGU Course/Dx - Course Course Of Treatment: Pt. presenting with hematuria, flank pain and CP. Afebrile and well appearing. Pt. currently chest pain free. ECG done at 0724 shows a sinus rhythm of 76bpm, normal axis, no ST elevation or depression. U/A negative for blood or infection. CT scan shows questionable right ureteral calculus. Troponin elevated at .22. Case discussed with Dr. Marrero who recommends CTA to r/o dissection given cp, flank pain and elevated troponin. Pt. has a reported contrast allergy of rash. Discussed with radiologist, Dr. Little, who notes pt. would need at least 6 hours prep. Given elevated troponin and pt.'s risk factors hospitalist contacted for admission. Discussed with Dr. Lopez who accepts for admission. - Diagnoses Differential Diagnoses - Female: MA, Pyelonephritis, Renal Colic, Ureteral Calculi Provider Diagnoses: Ureteral calculus, Elevated troponin Discharge ED - Sign-Out/Discharge Documenting (check all that apply): Patient Departure - Discharge Plan Condition: Stable Disposition: ADMITTED TO [facility] - Billing Disposition and Condition Condition: STABLE Disposition: Admitted to [facility] - Attestation Statements Provider Attestation: I was available for consult. This patient was seen by the [facility]. The patient was not presented to, seen by, or examined by me. Arsen Marrero MD
[2019-07-24] MEDS ORDERED: Ketorolac INJ* 30 MG/ML 1 ML VIAL IV PUSH ONE (06:54)
[2019-07-24 07:20] LABS: Urine Appearance Clear; Urine Bilirubin Negative (Negative); Urine Blood Negative (Negative); Urine Color Yellow; Urine Glucose Negative (Negative); Urine Ketones Negative (Negative); Urine Nitrite Negative (Negative); Urine Protein Negative (Negative); Urine Specific Gravity 1.024 (1.010-1.030); Urine Urobilinogen Negative (Negative)
[2019-07-24] MEDS ORDERED: NS 0.9% 1000 ML** 1,000 ML IV ONE (07:30)
[2019-07-24 08:11] LABS: ABS Basophils 0.1 10^3/ul (0-0.2); ABS Eosinophils 0.2 10^3/ul (0-0.6); ABS Lymphocytes 2.6 10^3/ul (1.0-4.8); ABS Monocytes 0.9 10^3/ul (0-0.8); ABS Neutrophils 4.5 10^3/ul (1.5-7.7); Eosinophil % 2.3 %; Hematocrit 36 % (35-47); Hemoglobin 12.3 g/dL (12.0-16.0); Lymphocyte % 31.3 %; Mean Corpuscular HGB Conc 35 g/dL (31-36); Mean Corpuscular Hemoglobin 30 pg (27-31); Mean Corpuscular Volume 86 fL (80-97); Mean Platelet Volume 7.4 fL (7.4-10.4); Platelet Count 302 10^3/uL (150-450); Red Blood Count 4.14 10^6 /uL (3.70-4.87); Red Cell Distribution Width 14 % (10-15); White Blood Count 8.4 10^3/uL (3.5-10.8)
[2019-07-24 08:40] LABS: Albumin 3.9 g/dL (3.2-5.2); Albumin/Globulin Ratio 1.3 (1-3); BUN/Creatinine Ratio 24.2 (8-20); C Reactive Protein 18.54 mg/L (<8.01); Calcium 9.4 mg/dL (8.6-10.3); EGFR African American 70.7 (>60); EGFR Non-African American 58.5 (>60); Globulin 3.1 g/dL (2-4); Potassium 4.7 mmol/L (3.5-5.0); Total Bilirubin 0.3 mg/dL (0.2-1.0)
[2019-07-24 08:42] LABS: Troponin I 0.22 ng/mL (<0.04)
[2019-07-24] MEDS ORDERED: diPHENhydraMINE IV* 50 MG/ML 1 ml VIAL (BENADRYL) IV ONE (09:07)
[2019-07-24] MEDS ORDERED: Ketorolac INJ* 15 MG/ML 1 ML VIAL IV PUSH PRN (10:48)
[2019-07-24] MEDS ORDERED: Dextrose 50% VIAL 50 ml IV PUSH PRN (10:51)
[2019-07-24] MEDS ORDERED: predniSONE TAB* 50 MG PO SCH (11:00)
[2019-07-24 11:45] LABS: Troponin I 0.21 ng/mL (<0.04)
[2019-07-24] MEDS: Lactated Ringers 1000 ML Bag* 1,000 ML IV SCH ×2 (12:15→23:07)
[2019-07-24] MEDS: Insulin LISPRO* 1 UNITS UNIT SUBCUT SCH ×3 (12:30→20:56)
[2019-07-24] MEDS: predniSONE TAB* 50 MG PO SCH ×2 (12:44→17:36)
[2019-07-24] MEDS: Acetaminophen TAB* 325 MG PO PRN (14:26)
--- NOTE | 2019-07-24 20:28 | HP ---
CC: Dr. Princess De Paz * HISTORY AND PHYSICAL: DATE OF ADMISSION: 07/24/19 TIME OF EVALUATION: 10:15 a.m. PRIMARY CARE PROVIDER: Dr. Princess De Paz. CHIEF COMPLAINT: Blood in the urine. HISTORY OF PRESENT ILLNESS: Mrs. Jefferson is a 53-year-old female with a past medical history of hypertension, hyperlipidemia, type 2 diabetes, irritable bowel syndrome, fibromyalgia, obstructive sleep apnea, not on a CPAP, prior admission for possible myopericarditis in 2015, who presented to the emergency room with complaints of hematuria. The patient's history goes back to 06/17/19 where she had an excision of a painful soft tissue mass from her right arch suspected to be a lipoma ( confirmed by pathology result). The patient states that after surgery, she was nonweight-bearing and had to walk around her house with a scooter. She states that a couple of weeks ago, she fell forward in her dining room and hit her chest. She has been having episodes of retrosternal chest pain, sometimes radiating to her left shoulder and jaw, not precipitated by exercise, that she rates at a 3 to 5/10. Nothing makes the pain worse or better and she did not think much of it. She states that the last night, she started to have pelvic pain, especially on the right side and she noted some blood in the urine. She describes the urine as pink and she saw some blood while wiping herself. This morning, the pain was still present, so she presented to the emergency room for further evaluation. She denies nausea, vomiting, chills, fever, diarrhea. In the emergency room, she went to the bathroom and she describes her urine as normal. In the emergency room, there was concern for a possible aortic dissection, but the patient has a history of CONTRAST allergy, so the hospitalist service was contacted to prepare the patient for a contrasted study. PAST MEDICAL HISTORY: 1. Hypertension. 2. Hyperlipidemia. 3. Type 2 diabetes. 4. Irritable bowel syndrome. 5. Fibromyalgia. 6. Obstructive sleep apnea, not on CPAP. Admission in May 2016 to [facility] [place] with chest pain and troponin elevation. At that time, her troponin was 0.37. She had a stress test that was negative and the discharge impression was that the patient had myopericarditis. The patient states that she had no further workup after that. PAST SURGICAL HISTORY: 1. Status post right knee arthroscopy. 2. Status post hysterectomy in 2001. 3. Status post right carpal tunnel surgery in 2001. 4. Status post tonsillectomy. 5. Status post lipoma resection from the right foot in June 2019 as described above. MEDICATION LIST: 1. Atorvastatin 40 mg p.o. at bedtime. 2. Bisoprolol/hydrochlorothiazide 10/6.25 mg 1 tablet p.o. daily. 3. Cymbalta 20 mg p.o. at bedtime. 4. Empagliflozin 10 mg p.o. daily. 5. Gabapentin 300 mg p.o. at bedtime. 6. Ibuprofen 800 mg p.o. q.6 hours p.r.n. pain. 7. Metformin 500 mg p.o. b.i.d. ALLERGIES: To ERYTHROMYCIN, HYDROCODONE, LATEX, SULFA, and CONTRAST. FAMILY HISTORY: The patient is adopted. SOCIAL HISTORY: No history of tobacco, alcohol, or drug use. Surrogate decision maker is her , Nilton Jefferson, . REVIEW OF SYSTEMS: A 14-point review of systems was performed, and all the pertinent negatives and positive findings are in the HPI. PHYSICAL EXAMINATION GENERAL: The patient is a pleasant, middle-aged lady, overweight, sitting up in the ED stretcher, in no acute distress. VITAL SIGNS: Temperature 98.5, heart rate is 86, respiratory rate is 18, oxygen saturation is 98% on room air, blood pressure is 109/64. HEENT: Pupils are equal. Moist mucous membranes. CHEST: Breath sounds bilaterally with no added sounds. CVS: Normal S1, S2. Regular rate and rhythm. ABDOMEN: Obese, soft, nontender, nondistended. Bowel sounds are present. There is mild right CVA tenderness. NEURO AND MENTAL STATUS: The patient is alert, oriented x3. Able to move all 4 extremities. EXTREMITIES: No edema. DIAGNOSTIC STUDIES/LAB DATA: The patient had a CBC that showed WBC of 8.4, hemoglobin 12.3, hematocrit 36, platelets of 382 with 54% neutrophils. Chemistry showed a sodium of 137, potassium of 4.7, chloride of 101, bicarb 27, BUN of 24, creatinine of 0.9, glucose of 147. Calcium is 9.4. LFTs are normal. Troponin was 0.22. CRP is 18.5. Urinalysis was normal. CT of the abdomen and pelvis without contrast shows nonobstructing left renal calculus. Probable calculus in the distal right ureter without evidence for hydronephrosis. Urachal anomaly of the bladder, mild hepatomegaly, and hepatic steatosis status post hysterectomy. EKG done on 07/24/19 at 7:24 a.m. showed sinus rhythm at 76 beats per minute with flat Ts in V2, slightly negative T waves in III but no acute ischemic change, this is similar to her prior EKG from 2016. ASSESSMENT AND PLAN: Mrs. Jefferson is a 53-year-old female with a past medical history of hypertension, hyperlipidemia, type 2 diabetes, obesity with a BMI of 34.3 who presented to the emergency room with complaints of chest pain , abdominal pain, and hematuria, found to have nephrolithiasis and elevated troponin. 1. Hematuria. I believe this is probably secondary to the right kidney stone that is about to pass. At this time, she denies any pain. Her hematuria is resolved. She has no signs of urinary tract infection, so we will continue conservative treatment with IV hydration and pain medication as necessary. 2. Troponin elevation. The patient had similar presentation in 2016 and at that time, her stress test was negative and the impression was that she could have myopericarditis. She does have more risk factors at this time since she has been diagnosed with diabetes and hyperlipidemia. We are going to trend serial troponins and there is concern for possible aortic dissection considering her pain. Due to her allergy to CONTRAST, the patient will be admitted as observation to the telemetry floor, we will check serial troponins to rule out acute coronary syndrome and she will be prepped with prednisone and Benadryl for a CTA of the chest, abdomen and pelvis to rule out aortic dissection. If the CTA is negative, we may consider pursuing another stress test and echocardiogram. Due to the possibility of dissection, I am going to avoid anticoagulation at this time. 3. Hypertension. We will continue bisoprolol/hydrochlorothiazide. 4. Type 2 diabetes. I am going to hold metformin as she is going to have a contrast study and she will have fingersticks with lispro sliding scale. 5. Hyperlipidemia. We will continue atorvastatin. 6. DVT prophylaxis. The patient has a score of 2 on the DVT Prophylaxis Risk Assessment Guide and she will have SCDs. 7. Code status is full. TIME SPENT: Approximately 60 minutes was spent with the patient interview, medical records review, physical examination to complete this admission; more than half of this time was spent [id number] with the patient and coordination of care. [id number]/[facility] #: [id number] MTDJesus
[2019-07-24] MEDS: Gabapentin CAP(*) 300 MG PO SCH (20:56)
[2019-07-24] MEDS: Atorvastatin* 40 MG TAB PO SCH (20:56)
[2019-07-24] MEDS: DULoxetine DR CAP* 20 MG CAP.DR PO SCH (20:56)
[2019-07-24] MEDS ORDERED: diPHENhydraMINE PO* 50 MG PO ONE (23:00)
[2019-07-24] MEDS ORDERED: Iodixanol* (CONTRAST) 320 MG/ML 100 ML SDV IV ONE (23:52)
[2019-07-25] MEDS: oxyCODONE TAB* 5 MG TAB PO PRN ×2 (00:52→16:01)
[2019-07-25] MEDS: predniSONE TAB* 50 MG PO SCH (00:52)
[2019-07-25 07:50] LABS: HDL Cholesterol 41.8 mg/dL
[2019-07-25] MEDS ORDERED: Bisoprolol TAB* 5 MG PO SCH (09:00)
[2019-07-25] MEDS: Heparin VIAL(*) 5000 UNITS/ML VIAL (FIVE THOUSAND) SUBCUT SCH ×2 (09:31→20:23)
[2019-07-25] MEDS: Hydrochlorothiazide TAB* 25 MG PO SCH (09:31)
[2019-07-25] MEDS: Insulin LISPRO* 1 UNITS UNIT SUBCUT SCH ×4 (09:32→20:23)
--- NOTE | 2019-07-25 10:26 | PN ---
Subjective Date of Service: 07/25/19 Interval History: Patient seen resting in bed. Reported pain across her lower back from laying in bed, but otherwise is feeling well, no acute distress. Denies fever, chills, lightheadedness, shortness of breath, chest pain, abdominal/flank pain, hematuria, difficulties with bowels/bladder. Family History: Unchanged from Admission Social History: Unchanged from Admission Past Medical History: Unchanged from Admission Objective Active Medications: Acetaminophen (Tylenol Tab*) 650 mg PO Q6H PRN PRN Reason: MILD PAIN or TEMP > 100.4 Last Admin: 07/24/19 14:26 Dose: 650 mg Atorvastatin Calcium (Lipitor*) 40 mg PO BEDTIME [facility] Last Admin: 07/24/19 20:56 Dose: 40 mg Dextrose (Dextrose 50% Vial 50 Ml*) 25 ml IV PUSH .FOR FS < 60 - SS PRN PRN Reason: FS < 60 Duloxetine HCl (Cymbalta Cap*) 20 mg PO BEDTIME [facility] Last Admin: 07/24/19 20:56 Dose: 20 mg Gabapentin (Neurontin Cap(*)) 300 mg PO BEDTIME [facility] Last Admin: 07/24/19 20:56 Dose: 300 mg Heparin Sodium (Porcine) (Heparin Vial(*)) 5,000 units SUBCUT Q12HR [facility] Last Admin: 07/25/19 09:31 Dose: 5,000 units Hydrochlorothiazide (Hydrodiuril Tab*) 6.25 mg PO QAM [facility] Last Admin: 07/25/19 09:31 Dose: 6.25 mg Lactated Ringer's (Lactated Ringers 1000 Ml Bag*) 1,000 mls @ 100 mls/hr IV PER RATE [facility] Last Admin: 07/24/19 23:07 Dose: 100 mls/hr Insulin Human Lispro (Humalog*) 0 units SUBCUT ACHS [facility]; Protocol Last Admin: 07/25/19 09:32 Dose: 3 units Ketorolac Tromethamine (Toradol Inj*) 15 mg IV PUSH Q6H PRN PRN Reason: PAIN - MODERATE Oxycodone HCl (Roxycodone Tab*) 5 mg PO Q4H PRN PRN Reason: PAIN - MODERATE Last Admin: 07/25/19 00:52 Dose: 5 mg Vital Signs - 8 hr 07/25/19 07/25/19 07/25/19 03:03 03:04 03:20 Temperature 98.2 F Pulse Rate 99 Respiratory 16 16 20 Rate Blood Pressure 96/48 (mmHg) O2 Sat by Pulse 96 Oximetry 07/25/19 07:13 Temperature 98.2 F Pulse Rate 102 Respiratory 18 Rate Blood Pressure 100/64 (mmHg) O2 Sat by Pulse 95 Oximetry Oxygen Devices in Use Now: None Appearance: This is a well-groom, well-developed obese woman seen resting in bed. No acute distress. Eyes: No Scleral Icterus, PERRLA Ears/Nose/Mouth/Throat: NL Teeth, Lips, Gums, Clear Oropharnyx, Mucous Membranes Moist Neck: NL Appearance and Movements; NL JVP, Trachea Midline Respiratory: Symmetrical Chest Expansion and Respiratory Effort, Clear to Auscultation Cardiovascular: NL Sounds; No Murmurs; No JVD, RRR, No Edema Abdominal: NL Sounds; No Tenderness; No Distention Lymphatic: No Cervical Adenopathy Extremities: No Edema, No Clubbing, Cyanosis Skin: No Rash or Ulcers, No Nodules or Sclerosis Neurological: Alert and Oriented x 3, NL Sensation Lines/Tubes/Other Access: Clean, Dry and Intact Peripheral IV Result Diagrams: 07/24/19 07:43 07/24/19 07:43 Assess/Plan/Problems-Billing Assessment: This is a 53 year old woman with a past medical history significant for kidney stones, DM, HTN, HLD admitted on 07/24/19 for hematuria, right distal ureter kidney stone and elevated trops. - Patient Problems (1) Hematuria Current Visit: Yes Status: Acute Code(s): R31.9 - HEMATURIA, UNSPECIFIED SNOMED Code(s): 09492983 Comment: -Likely secondary to right distal ureter calculus. Resolved. No signs or symptoms of UTI. Will continue IV fluids, conservative management. Strain urine. (2) Elevated troponin Current Visit: Yes Status: Acute Code(s): R79.89 - OTHER SPECIFIED ABNORMAL FINDINGS OF BLOOD CHEMISTRY SNOMED Code(s): 333699862 Comment: -Had a siminlar presentation in 2016, stress test at that time was negative. CT scan ruled out aortic dissection. -Troponins peaked at 0.22, last draw was 0.20. No current chest pain or shortness of breath. Obtain echo today. -Opted for nuclear stress test versus exercise due to surgery on her foot in the past 2 weeks. Her surgeon had wanted her to take it easy and avoid excessive weight bearing. -Rico score of 2. -Consult with cardiology after testing, pending results. (3) Hypertension Current Visit: Yes Status: Acute Code(s): I10 - ESSENTIAL (PRIMARY) HYPERTENSION SNOMED Code(s): 23464272 Comment: Holding the bisoprolol today for stress test tomorrow, may resume after that. Continue hydrochlorothiazide. (4) Diabetes type 2, controlled Current Visit: Yes Status: Acute Code(s): E11.9 - TYPE 2 DIABETES MELLITUS WITHOUT COMPLICATIONS SNOMED Code(s): 44974501 Comment: -Hold metformin while in hospital. -Continue fingersticks ACHS with sliding scale coverage. Blood sugars ranging between 118-160's. (5) Hyperlipidemia Current Visit: Yes Status: Acute Code(s): E78.5 - HYPERLIPIDEMIA, UNSPECIFIED SNOMED Code(s): 62975506 Comment: -Continue atorvastatin. (6) DVT prophylaxis Current Visit: Yes Status: Acute Code(s): Z29.9 - ENCOUNTER FOR PROPHYLACTIC MEASURES, UNSPECIFIED SNOMED Code(s): 664280359 Comment: -SCD's. (7) Full code status Current Visit: Yes Status: Acute Code(s): Z78.9 - OTHER SPECIFIED HEALTH STATUS SNOMED Code(s): 013636773 Status and Disposition: Condition: Fair Disposition: Admitted observation on 4S. Attending: Komal Hernandez
[2019-07-25] MEDS: Lactated Ringers 1000 ML Bag* 1,000 ML IV SCH (15:30)
[2019-07-25 16:47] LABS: Calcium 9.1 mg/dL (8.6-10.3)
[2019-07-25 16:52] LABS: BUN/Creatinine Ratio 20.3 (8-20); EGFR African American 57.8 (>60); EGFR Non-African American 47.7 (>60)
[2019-07-25 16:58] LABS: Potassium 4.3 mmol/L (3.5-5.0)
[2019-07-25] MEDS: Gabapentin CAP(*) 300 MG PO SCH (20:22)
[2019-07-25] MEDS: Atorvastatin* 40 MG TAB PO SCH (20:23)
[2019-07-25] MEDS: DULoxetine DR CAP* 20 MG CAP.DR PO SCH (20:23)
[2019-07-26] MEDS: Lactated Ringers 1000 ML Bag* 1,000 ML IV SCH (01:43)
[2019-07-26] MEDS: Insulin LISPRO* 1 UNITS UNIT SUBCUT SCH ×2 (10:50→13:00)
[2019-07-26] MEDS ORDERED: Regadenoson* 0.4 MG/5 ML SYRINGE ONE (12:32)
[2019-07-26] MEDS: Heparin VIAL(*) 5000 UNITS/ML VIAL (FIVE THOUSAND) SUBCUT SCH (13:02)
--- NOTE | 2019-07-26 13:35 | ECHO ---
*[facility]* [place] [address] Fax #: [phone] Transthoracic Echocardiogram Patient: Maryana Jefferson : 1965 Study Date: 07/26/2019 Age: 53 Gender: F HR: 86 bpm Height: 64 in /162.6 cm BSA: 1.96 m^2 Weight: 199.6 lb /90.7 kg BMI: 34.3 kg/m^2 *Model Set Artist: * Ingrid Larios RDCS RN *Referring Physician: * Malini Espinoza *Reading Physician: * Tor Ledezma MD Indications: Chest Pain, unspecified. History: Obstructive sleep apnea. Myopericarditis. Risk factors: Hypertension. Diabetes mellitus. Obese. Dyslipidemia. Conclusions Summary: - Left ventricle: Systolic function is normal. The estimated ejection fraction is 55-60%. Wall motion is normal; there are no regional wall motion abnormalities. - Right ventricle: Systolic function is normal. - Mitral valve: There is mild regurgitation. - Aortic valve: There is no evidence of stenosis. - Tricuspid valve: There is trace to mild regurgitation. - Pericardium, extracardiac: There is no significant pericardial effusion. - Compared to study of 05/22/16, there is little change. Study data: Transthoracic echocardiogram. Procedure: Transthoracic echocardiography was performed. Image quality was fair. The study was technically limited due to body habitus. Complete 2D, spectral Doppler, and color flow Doppler. Location: Bedside. Patient status: Observation. Patient room number: 441-01. Findings Left ventricle: The cavity size is normal. Wall thickness is mildly increased. Systolic function is normal. The estimated ejection fraction is 55-60%. Wall motion is normal; there are no regional wall motion abnormalities. Left ventricular diastolic function parameters are normal. Right ventricle: The cavity size is normal. Systolic function is normal. Left atrium: The atrium is normal in size. Right atrium: The atrium is normal in size. Mitral valve: The leaflets are mildly thickened. There is no evidence of stenosis. There is mild regurgitation. Aortic valve: The valve is trileaflet. The leaflets are mildly thickened. There is no evidence of stenosis. There is no significant regurgitation. Tricuspid valve: The valve is structurally normal. There is no evidence of stenosis. There is trace to mild regurgitation. Pulmonic valve: Not well visualized. There is no evidence of stenosis. There is trace regurgitation. Aorta: Aortic root: The aortic root is not dilated. Ascending aorta: The ascending aorta is not dilated. Aortic arch: The aortic arch is not dilated. Pericardium: There is no significant pericardial effusion. Pulmonary arteries: The main pulmonary artery is normal-sized. Systolic pressure is within the normal range, estimated to be 32 mm Hg. Systemic veins: Inferior vena cava: The vessel is normal in size. There is (>= 50%) respiratory change in the IVC dimension. Measurements Left ventricle Value Ref Aortic valve Value Ref VELASQUEZ, LAX 4.2 cm 3.8 - 5.2 Ragini diam, ED 2.1 cm ---- ESD, LAX 2.8 cm 2.2 - 3.5 Peak v, S 1.44 m/sec ---- FS, LAX 33 % 27 - 45 VTI, S 31.4 cm ---- PW, ED, LAX (H) 1.1 cm 0.6 - 0.9 Mean grad, S 5.0 mm Hg ---- PW, ED (H) 1.0 cm 0.6 - 0.9 Peak grad, S 8.0 mm Hg ---- IVS/PW, ED 1.04 LVOT/AV, VTI ratio 0.61 ---- E', lat ragini, TDI 10.0 cm/sec >=10.0 E/e', lat ragini, 11 Mitral valve Value Ref TDI Peak E 1.09 m/sec ---- E', med ragini, TDI 9.4 cm/sec >=7.0 Peak A 0.88 m/sec --- - E/e', med ragini, 12 Decel time 158 ms ---- TDI Peak grad, D 4.8 mm Hg ---- E', avg, TDI 9.7 cm/sec Peak E/A ratio 1.2 ---- E/e', avg, TDI 11 <=14 Pulmonic valve Value Ref LVOT Value Ref Peak v, S 0.85 m/sec ---- Peak melissa, S 0.89 m/sec Peak grad, S 3.0 mm Hg ---- VTI, S 19.0 cm Mean grad, S 2 mm Hg Tricuspid valve Value Ref Peak RV-RA grad, S 29 mm Hg ---- Ventricular septum Value Ref Max TR melissa 2.7 m/sec ---- IVS, ED (H) 1.1 cm 0.6 - 0.9 Aortic root Value Ref Right ventricle Value Ref Root diam 3.2 cm <4.1 VELASQUEZ, LAX 3.0 cm VELASQUEZ minor ax, A4C 2.9 cm 1.9 - 3.5 Ascending aorta Value Ref mid AAo AP diam, S 3.0 cm ---- Pressure, S 32 mm Hg Aortic arch Value Ref Left atrium Value Ref Arch diam 2.4 cm ---- AP dim, ES 3.70 cm 2.70 - 3.80 Decending aorta Value Ref ML dim, A4C 4.0 cm Radha peak melissa 0.7 m/sec ---- SI dim, A4C 4.8 cm Vol/bsa, ES, 1-p 26 ml/m^2 11 - 40 Pulmonary artery Value Ref A4C Pressure, S 32.0 mm Hg ---- Vol/bsa, ES, A/L 22 ml/m^2 16 - 34 Inferior vena cava Value Ref Right atrium Value Ref Diam 1.3 cm ---- SI dim, ES 4.3 cm 3.4 - 5.3 ML dim, ES, A4C 3.4 cm 2.6 - 4.4 SI dim, ES, A4C 4.3 cm 3.4 - 5.3 SI dim/bsa, ES, 2.2 cm/m^2 1.9 - 3.1 A4C Estimated RAP 3 mm Hg Legend: (L) and (H) keshia values outside specified reference range. Prepared and electronically signed by Tor Ledezma MD 07/26/2019 13:35
[2019-07-26 14:58] LABS: BUN/Creatinine Ratio 20.2 (8-20); Calcium 8.5 mg/dL (8.6-10.3); EGFR Non-African American 66.1 (>60); Magnesium 2.1 mg/dL (1.9-2.7); Potassium 3.5 mmol/L (3.5-5.0)
[2019-07-26] MEDS: Acetaminophen TAB* 325 MG PO PRN (15:14)
[2019-07-26] MEDS: Hydrochlorothiazide TAB* 25 MG PO SCH (15:15)
[2019-07-26 15:55] VITALS: BP 145/69
--- NOTE | 2019-07-26 22:17 | DS ---
CC: Dr. Princess De Paz * DISCHARGE SUMMARY: DATE OF ADMISSION: 07/24/19 DATE OF DISCHARGE: 07/26/19 PROVIDER: Samra Kim NP ATTENDING PHYSICIAN: Dr. Horn.* (DICTATED BY SAMRA KIM NP) PRIMARY CARE PHYSICIAN: Dr. Princess De Paz. PRIMARY DIAGNOSES: Hematuria and chest pain with troponin elevation. SECONDARY DIAGNOSES: 1. Diabetes, type 2. 2. Hypertension. 3. Hyperlipidemia. PROCEDURES: Nuclear medicine stress test revealed no evidence for infarct or ischemia. ASSESSMENT: The patient has a low-cardiac risk. STUDIES: Transthoracic echocardiogram revealed a normal systolic function, estimated ejection fraction of 55% to 60%. No regional wall motion abnormalities. There was mild regurgitation of the mitral valve and [id number] regurgitation of the tricuspid valve. Chest, abdomen, and pelvis CT revealed no aortic dissection, aneurysmal rupture , and no pulmonary emboli. EKG showed sinus rhythm. PERTINENT LAB DATA: On 07/26/19, BUN-creatinine ratio of 20.2, glucose 107, calcium 8.5. HOSPITAL COURSE: This is a 53-year-old female with a past medical history that is significant for hypertension, hyperlipidemia, type 2 diabetes, irritable bowel syndrome, fibromyalgia, and obstructive sleep apnea, that was admitted on 07/24/19 for hematuria. On the night previous to the admission, the patient had noted some right-sided pelvic pain and some blood in the urine though denied nausea, vomiting, fever, chills, and diarrhea. In the emergency room, there was a concern for possible aortic dissection. CT scan was performed, which confirmed that there was no dissection present though troponin levels were elevated at 0.22, which was its peak, one as low as 0.2 with no accompanied chest pain, shortness of breath, abdominal pain, nausea, vomiting. The patient had a previous episode of chest pain with elevated troponins 2 years ago and at that time an EKG and stress test was negative. During the stay , the patient had no further signs of hematuria. It was felt that the right kidney stone had passed though noted in the CT scan there was a left renal calculi that the patient had known about previous to admission. Today, the patient reported low left groin pain likely due to stone moving through the tract though again no reports of hematuria. The patient was kept hydrated through her stay with IV fluids, feels well today to be discharged to home. REVIEW OF SYSTEMS: An 11-point system review was negative except for left lower pelvic pain upon palpation. PHYSICAL EXAMINATION: Vital Signs: 97.3 Fahrenheit, 107 pulse, 14 respirations , 100% oxygen on room air, and 145/67 blood pressure. Eyes: Conjunctivae pink and moist. PERRLA. EOMs intact. ENT: Oropharynx is clear. Mucous membranes moist. Neck is supple. Cardiac: S1, S2 present. Heart rate regular. No murmurs, gallops, or rubs appreciated. Pulmonary: Breath sounds are clear throughout bilaterally to auscultation. No accessory muscle use. Musculoskeletal: 5/5 bilateral upper and lower extremity strength. No clubbing or cyanosis appreciated. Neuro: No focal deficits appreciated. Sensation intact to light touch. Extremities: No edema noted. Skin: No open areas or rashes appreciated. Psych: Alert and oriented x3. Thought content organized. DISCHARGE PLAN: The patient can go home on a consistent carb diet. Activity as tolerated. To return to the ED if any chest pain or shortness of breath or inability to void. 1. Hematuria, which has resolved upon admission. The patient is to increase hydration for the next week. 2. Chest pain with elevated troponins. Stress test is negative, is a low- cardiac risk, does not need to follow up with Cardiology at this time. 3. Hypertension. May continue the bisoprolol/hydrochlorothiazide. 4. Hyperlipidemia. Can continue atorvastatin. 5. Diabetes. The patient to continue her metformin and Jardiance, which had been on hold during the hospital stay. May also continue gabapentin for neuropathy. 6. Depression. Continue duloxetine. CONTINUED HOME MEDICATIONS: 1. Metformin 500 mg p.o. b.i.d. 2. Ibuprofen 800 mg p.o. q.6 hours p.r.n. 3. Gabapentin 300 mg p.o. bedtime. 4. Jardiance 10 mg p.o. daily. 5. Duloxetine 20 mg p.o. bedtime. 6. Bisoprolol/hydrochlorothiazide 10/6.25 mg 1 tab q.a.m. 7. Atorvastatin 40 mg p.o. bedtime. CONDITION UPON DISCHARGE: Stable. DISPOSITION: To home. TIME SPENT: Time spent on the patient is about 30 minutes. SAMRA KIM, CLINICAL EDITOR [id number]/[facility] #: [id number] M[facility]INT MARY'S HOSPITALJesus
== END 2019-07-26 16:36 | disposition home or self-care (01) ==
LOC: ED 06:15 → MEDTELE 10:19
PROVIDERS: ADMIT Internal Medicine; ATTEND Internal Medicine
DX: R07.9 Chest pain, unspecified (principal); R31.9 Hematuria, unspecified; R79.89 Other specified abnormal findings of blood chemistry; E11.9 Type 2 diabetes mellitus without complications; I10 Essential (primary) hypertension; E78.5 Hyperlipidemia, unspecified; Z79.899 Other long term (current) drug therapy; K58.9 Irritable bowel syndrome, unspecified; M79.7 Fibromyalgia; G47.33 Obstructive sleep apnea (adult) (pediatric)
CPT/HCPCS: 36415; 71275; 74174; 74176; 78452; 80048; 80053; 80061; 81003; 83735; 84484; 85025; 86140; 93005; 93017; 93306; 96372; 96374; 99284; A9270-GY; A9502; G0378; J1200; J1644; J1885; J2785; J7512; Q9967

== ENCOUNTER 2022-05-23 09:29 | Observation (INO) ==
[2022-05-23 09:51] LABS: ABS Eosinophils 0.2 10^3/ul (0-0.6); ABS Lymphocytes 2.6 10^3/ul (1.0-4.8); ABS Monocytes 0.6 10^3/ul (0-0.8); ABS Neutrophils 3.8 10^3/ul (1.5-7.7); Eosinophil % 3.4 %; Hematocrit 40 % (35-47); Hemoglobin 13.3 g/dL (12.0-16.0); Lymphocyte % 35.5 %; Mean Corpuscular HGB Conc 33 g/dL (31-36); Mean Corpuscular Hemoglobin 29 pg (27-31); Mean Corpuscular Volume 86 fL (80-97); Mean Platelet Volume 7.6 fL (7.4-10.4); Platelet Count 311 10^3/uL (150-450); Red Blood Count 4.67 10^6 /uL (3.70-4.87); Red Cell Distribution Width 14 % (10-15); White Blood Count 7.2 10^3/uL (3.5-10.8)
[2022-05-23 09:56] LABS: INR 0.9 (0.89-1.11)
[2022-05-23] MEDS ORDERED: NS 0.9% 1000 ml BAG 1,000 ML IV ONE (10:44)
[2022-05-23 10:45] LABS: Albumin 4.2 g/dL (3.2-5.2); Albumin/Globulin Ratio 1.4 (1-3); Calcium 9.4 mg/dL (8.6-10.3); Potassium 4.3 mmol/L (3.5-5.0); Total Bilirubin 0.4 mg/dL (0.2-1.0); Total Protein 7.2 g/dL (6.4-8.9); eGFR CKD-EPI 69.9 (>60)
[2022-05-23 11:08] LABS: High Sensitivity Troponin 1 Hr 3 pg/mL (<15)
[2022-05-23] MEDS ORDERED: Ondansetron 4 mg VIAL 2 MG/ML 2 ml VIAL IV PRN (12:28)
[2022-05-23] MEDS ORDERED: Enoxaparin 40 MG/0.4 ML SYR SUBCUT SCH (13:00)
[2022-05-23] MEDS ORDERED: Dextrose 50% Syringe 50 ml 25 GM/50 ML SYRINGE IV PUSH PRN (13:01)
[2022-05-23] MEDS: Triamcinolone 0.025% OINT 15 GM TUBE TOPICAL SCH (21:30)
[2022-05-24 05:41] LABS: ABS Basophils 0.2 10^3/ul (0-0.2); ABS Eosinophils 0.2 10^3/ul (0-0.6); ABS Lymphocytes 2.6 10^3/ul (1.0-4.8); ABS Monocytes 0.7 10^3/ul (0-0.8); ABS Neutrophils 4.3 10^3/ul (1.5-7.7); Eosinophil % 2.9 %; Hematocrit 39 % (35-47); Hemoglobin 13.3 g/dL (12.0-16.0); Lymphocyte % 32.8 %; Mean Corpuscular HGB Conc 34 g/dL (31-36); Mean Corpuscular Hemoglobin 30 pg (27-31); Mean Corpuscular Volume 86 fL (80-97); Mean Platelet Volume 7.7 fL (7.4-10.4); Nucleated Red Blood Cells % 0.1; Platelet Count 284 10^3/uL (150-450); Red Blood Count 4.52 10^6 /uL (3.70-4.87); Red Cell Distribution Width 14 % (10-15)
[2022-05-24 06:21] LABS: HDL Cholesterol 29.9 mg/dL; Magnesium 2.1 mg/dL (1.9-2.7); Potassium 4.3 mmol/L (3.5-5.0); eGFR CKD-EPI 77.7 (>60)
[2022-05-24] MEDS ORDERED: DULoxetine DR 60 mg CAP PO SCH (09:00)
[2022-05-24] MEDS ORDERED: NON FORMULARY MED (Bisoprolol-Hydrochlorothiazide 10-6.25 mg tablet) PO SCH (09:00)
[2022-05-24] MEDS ORDERED: Regadenoson 0.4 MG/5 ML SYRINGE ONE (09:06)
[2022-05-24] MEDS: Triamcinolone 0.025% OINT 15 GM TUBE TOPICAL SCH (10:49)
[2022-05-24 11:56] VITALS: BP 109/74
== END 2022-05-24 13:40 | disposition home or self-care (01) ==
LOC: ED 09:29 → EDHOLD 09:29 → MEDTELE 15:42
PROVIDERS: ADMIT Internal Medicine; ATTEND Internal Medicine